=== PATIENT | male | born 1950 | race Caucasian/White ===

== ENCOUNTER 2019-07-04 07:11 | Day surgery (SDC) | payer OTHER ==
[2019-07-03 14:34] VITALS: BMI 32.8
[2019-07-04 11:36] VITALS: BP 130/77; PULSE 88; TEMP 98
--- NOTE | 2019-07-06 18:59 | PATH ---
Surgical Pathology Report Patient Name: EDWARD ALEGRIA [facility]. Rec. #: [id number] /Age/Gender: 1950 (Age: 68) / M Account: [id number] Location: U-ENDOSCOPY Taken: 07/04/2019 Received: 07/04/2019 Reported: 07/06/2019 Physicians: JENNIFER SANTIAGO Specimen(s) Received A: DUODENUM B: ANTRUM C: STOMACH BODY LINEAR ULCER D: ESOPHAGUS E: CECUM F: ASCENDING COLON G: SIGMOID H: RECTUM Clinical History Diarrhea Postoperative diagnosis: Linear ulceration, stomach???, Reflux, unexplained diarrhea, random biopsy rule out microscopic colitis Final Diagnosis A. DUODENUM, BIOPSY: DUODENAL MUCOSA WITH MILD NONSPECIFIC CHRONIC DUODENITIS. B. ANTRUM, BIOPSY: GASTRIC MUCOSA WITH CHRONIC GASTRITIS. IMMUNOSTAIN FOR H. PYLORI IS NEGATIVE. NEGATIVE FOR INTESTINAL METAPLASIA. C. STOMACH BODY LINEAR ULCER, BIOPSY: GASTRIC MUCOSA WITH FOCAL EROSION AND CHRONIC GASTRITIS. IMMUNOSTAIN FOR H. PYLORI IS NEGATIVE. NEGATIVE FOR INTESTINAL METAPLASIA. D. ESOPHAGUS, BIOPSY: ESOPHAGEAL MUCOSA WITH NO SIGNIFICANT PATHOLOGIC CHANGE. NO HISTOLOGIC EVIDENCE OF EOSINOPHILIC ESOPHAGITIS. E. CECUM, BIOPSY: COLONIC MUCOSA WITH MILD ACUTE INFLAMMATION AND REACTIVE LYMPHOID AGGREGATES. F. ASCENDING COLON, BIOPSY: COLONIC MUCOSA WITH MILD ACUTE INFLAMMATION, AND INCREASED CHRONIC INFLAMMATORY CELLS INFILTRATE INCLUDING EOSINOPHILS IN THE LAMINA PROPRIA (EOSINOPHILS COUNT: ~50 /HPF). G. SIGMOID, BIOPSY: COLONIC MUCOSA WITH MILD ACUTE INFLAMMATION, AND INCREASED CHRONIC INFLAMMATORY CELLS INFILTRATE INCLUDING EOSINOPHILS IN THE LAMINA PROPRIA (EOSINOPHILS COUNT: ~50 /HPF). H. RECTUM, BIOPSY: COLONIC MUCOSA WITH MILD ACUTE INFLAMMATION AND ACUTE CRYPTITIS. Comment: Immunostain for H. Pylori performed at [place], [place] ([id number]) and interpreted at [facility] Positive and negative controls (internal if applicable) show appropriate results. Electronically Signed Rebeka Doran M.D. Gross Description A. Received in formalin, labeled "duodenum biopsy" are 2 fu, irregular portions of soft tissue measuring 0.3 and 0.4 cm. in greatest dimension. The specimens are submitted in toto in one cassette. B. Received in formalin, labeled "antrum biopsy" are 2 fu, irregular portions of soft tissue measuring 0.3 and 0.4 cm. in greatest dimension. The specimens are submitted in toto in one cassette. C. Received in formalin, labeled "biopsy stomach body" is a fu, irregular portion of soft tissue measuring 0.7 cm. in greatest dimension. The specimen is submitted in toto in one cassette. D. Received in formalin, labeled "esophagus biopsy" is a fu, irregular portion of soft tissue measuring 0.4 cm. in greatest dimension. The specimen is submitted in toto in one cassette. E. Received in formalin, labeled "cecum biopsy" are 2 fu, irregular portions of soft tissue measuring 0.2 and 0.3 cm. in greatest dimension. The specimens are submitted in toto in one cassette. F. Received in formalin, labeled "ascending colon biopsy" are 2 fu, irregular portions of soft tissue measuring 0.2 and 0.6 cm. in greatest dimension. The specimens are submitted in toto in one cassette. G. Received in formalin, labeled "sigmoid biopsy" are 2 fu, irregular portions of soft tissue measuring 0.4 and 0.7 cm. in greatest dimension. The specimens are submitted in toto in one cassette. H. Received in formalin, labeled "rectum biopsy" are 2 fu, irregular portions of soft tissue measuring 0.4 and 0.7 cm. in greatest dimension. The specimens are submitted in toto in one cassette. 07/04/2019 saudi07/04/2019
== END 2019-07-04 09:50 | disposition home or self-care (01) ==
LOC: JASU-ENDO 07:11
PROVIDERS: ATTEND Internal Medicine Gastroenterology
PROC: 0DBN8ZX Excision of Sigmoid Colon, Via Natural or Artificial Opening Endoscopic, Diagnostic (ICD-10-PCS; 2019-07-04)
PROC: 0DBP8ZX Excision of Rectum, Via Natural or Artificial Opening Endoscopic, Diagnostic (ICD-10-PCS; 2019-07-04)
PROC: 0DBH8ZX Excision of Cecum, Via Natural or Artificial Opening Endoscopic, Diagnostic (ICD-10-PCS; 2019-07-04)
PROC: 0DB68ZX Excision of Stomach, Via Natural or Artificial Opening Endoscopic, Diagnostic (ICD-10-PCS; 2019-07-04)
PROC: 0DBK8ZX Excision of Ascending Colon, Via Natural or Artificial Opening Endoscopic, Diagnostic (ICD-10-PCS; principal; 2019-07-04 08:30)
DX: K25.9 Gastric ulcer, unspecified as acute or chronic, without hemorrhage or perforation (principal); K64.8 Other hemorrhoids
CPT/HCPCS: 88305-TC